=== PATIENT | female | born 1985 | race Caucasian/White ===

== ENCOUNTER 2016-07-22 15:05 | Emergency (ER) | payer OTHER ==
--- NOTE | 2016-07-22 17:06 | ED Physician Chart ---
Chief Complaint/HPI - Patient Information Allergies:: Allergies Allergy/AdvReac Type Severity Reaction Status Date / Time No Known Allergies Allergy Verified 07/22/16 15:39 Vitals:: Vital Signs - 8 hr 07/22/16 07/22/16 15:39 18:22 Temp 98.2 F 98.0 F HR 80 67 RR 16 16 BP 115/73 110/70 O2 Sat % 98 100 Historian:: Patient Review:: Nurse's Note Reviewed <Jean Marie Minaya - Last Filed: 07/22/16 20:09> - Patient Information Date Seen:: 07/22/16 Time Seen:: 17:06 Chief Complaint:: LT LEG INJURY 10 AM AT WORK. History of Present Illness:: The patient was at work at 10 AM this morning when 25 trays of pizza dough fell from about 3 feet striking her below the knee and above the ankle of her left leg. The patient clean the abrasion with alcohol and there was no active bleeding at the present time. The patient rates the severity of the pain as a 7/ 10 and states that it has a burning character. The pain becomes more severe when she attempts to weight-bear. Patient's past medical history is unremarkable. Allergies:: Allergies Allergy/AdvReac Type Severity Reaction Status Date / Time No Known Allergies Allergy Verified 07/22/16 15:39 Vitals:: Vital Signs - 8 hr 07/22/16 15:39 Temp 98.2 F HR 80 RR 16 BP 115/73 O2 Sat % 98 <Sachin Archuleta - Last Filed: 07/23/16 17:06> Review of Systems - Review of Systems Other: Complete system review otherwise unremarkable except as noted in HPI. <Jean Marie Minaya - Last Filed: 07/22/16 20:09> Past Medical History - Past Medical History Past Medical History: No significant medical hx Family History: None Social History: Non Smoker, No Alcohol, No Drug Use, Employed Surgical History: None Psychiatricy History: None Medication: None <Jean Marie Minaya - Last Filed: 07/22/16 20:09> Family Medical History - Family Member Mother History Unknown: Yes Ethnicity: <Jean Marie Minaya - Last Filed: 07/22/16 20:09> - Family Member Mother History Unknown: Yes <Sachin Archuleta - Last Filed: 07/23/16 17:06> Physical Exam - Physical Examination Other:: INITIAL VITAL SIGNS: Reviewed by me GENERAL: Alert and interactive. No acute distress HEAD: Head is normocephalic and atraumatic EYES: EOMI. . No scleral icterus. No conjunctival injection ENT: Moist mucous membranes. NECK: Supple. No masses. Full range of motion RESPIRATORY: No tachypnea. Clear breath sounds bilaterally. No wheezing, rales, or rhonchi CV: Regular rate and rhythm. No murmurs, rubs, or gallops ABDOMEN: Soft, non-distended, non-tender. No guarding. No rebound. No masses. EXTREMITIES: Left arreola area is ecchymotic from proximal to the area. There is an abrasion in the mid to lower tibia area. Approximately 3 x 2 cm. Nonbleeding. SKIN: Warm and dry. No obvious rashes. NEUROLOGIC: Alert and oriented. Face is symmetric. Speech is normal. Moves all extremities equally. Motor and sensory distally intact. <Jean Marie Minaya - Last Filed: 07/22/16 20:09> Labs/Radiology/EKG Results - Lab Results Results: Laboratory Tests 07/22/16 17:45 Urine Test NEGATIVE - Radiology Results Results: X-ray tib-fib 2 views was interpreted independently and contemporaneously by Derrick Minaya MD: No acute fractures No acute dislocations No soft tissue foreign bodies Overall impression: Normal X-ray <Jean Marie Minaya - Last Filed: 07/22/16 20:09> ED Septic Shock - . Is Septic Shock (SBP<90, OR Lactate>4 mmol\L) present?: No - <6hrs of presentation: Vital Signs: Vital Signs - 8 hr 07/22/16 07/22/16 15:39 18:22 Temp 98.2 F 98.0 F HR 80 67 RR 16 16 BP 115/73 110/70 O2 Sat % 98 100 <Jean Marie Minaya - Last Filed: 07/22/16 20:09> - . Is Septic Shock (SBP<90, OR Lactate>4 mmol\L) present?: No - <6hrs of presentation: Vital Signs: Vital Signs - 8 hr 07/22/16 15:39 Temp 98.2 F HR 80 RR 16 BP 115/73 O2 Sat % 98 <Sachin Archuleta - Last Filed: 07/23/16 17:06> Reassessment (Disposition) - Reassessment Reassessment:: Patient suffered injury to the left lower extremity while at work. Multiple boxes of bread dough fell from a high height onto her left lower leg. There is ecchymosis and abrasion. X-rays reveal no acute fractures. Provided bacitracin and ibuprofen and updated tetanus shot. Patient referred to primary care in 1-2 days. Gave return to ER precautions. Patient understands and agrees with the plan. Reassessment Condition:: Improved - Diagnosis Diagnosis:: Abrasion and contusion of the left lower extremity - Aftercare/Follow up Instructions Aftercare/Follow-Up Instructions:: Counseled pt regarding lab results/diagnosis & need follow up, Refer to Discharge Instructions Medication Prescribed:: Ibuprofen - Patient Disposition Discharge/Transfer:: Home Time:: 20:03 Condition at Disposition:: Improved <Jean Marie Minaya - Last Filed: 07/22/16 20:09> ED Discharge Plan <Jean Marie Minaya - Last Filed: 07/22/16 20:09> <Sachin Archuleta - Last Filed: 07/23/16 17:06> - Patient Disposition Admit/Discharge/Transfer: PT DISCHARGED HOME Condition at Disposition: Improved Instructions: Contusion, Abrasion Forms: Work Release Form
[2016-07-22] MEDS ORDERED: Bacitracin pkt 1 gm Pkt TP ONE (19:55)
[2016-07-22] MEDS ORDERED: Bacitracin pkt 1 gm Pkt TP STA (20:29)
--- NOTE | 2016-07-23 11:13 | Diagnostic Imaging Report ---
Left tibia/fibula (2 views) HISTORY: Pain, trauma No acute bony abnormalities. No fractures. IMPRESSION: 1. No acute bony abnormalities
== END 2016-07-22 20:20 | disposition home or self-care (01) ==
LOC: ER 15:05
DX: S80.12XA Contusion of left lower leg, initial encounter (principal); W22.8XXA Striking against or struck by other objects, initial encounter; Y93.89 Activity, other specified; Y92.69 Other specified industrial and construction area as the place of occurrence of the external cause; Y99.0 Civilian activity done for income or pay
CPT/HCPCS: 99284; 73590; 81025; 90715; Z7610; Z7502